=== PATIENT | female | born 1990 | race African-American/Black ===

== ENCOUNTER 2021-03-28 12:47 | Emergency (ER) | payer OTHER ==
[~2021-03-28] VITALS: Ht 170.2 cm; Wt 68.0 kg
[2021-03-28 13:01] VITALS: BP 123/76
--- NOTE | 2021-03-28 13:04 | NUR ---
PT AMBULATED TO BED 11
[2021-03-28] MEDS ORDERED: LIDOCAINE 2% 1000 MG/50 ML VIAL INJ ONE (13:05)
[2021-03-28] MEDS ORDERED: IBUPROFEN 600 MG TAB PO ONE (13:05)
--- NOTE | 2021-03-28 13:06 | NUR ---
30 YO FEMALE BIBS C/O LACERATION TO LEFT FOOT. PT STATES SHE DROPPED A BOWL ON HER FOOT. C/O PAIN 10 DESCRIBES STINGING/BURNING, NON RADIATING. BLEEDING CONTROLLED, NO REDNESS, SWELLING, NO S/S OF INFECTION. PEDAL PULSES 3+, ROM AND SENSATION INTACT. DENIES FEVER, CHILLS, N/V/D. A&OX4, RR EVEN AND UNLABORED. PMH: NONE NKDA
[2021-03-28] MEDS ORDERED: LIDOCAINE MPF 1% 5 ML ONE (13:26)
[2021-03-28] MEDS ORDERED: LIDOCAINE MPF 1% 10 MG/ML VIAL INJ ONE (13:35)
--- NOTE | 2021-03-28 13:40 | NUR ---
ROSELIA JEAN BAPTISTE AT BEDSIDE FOR SUTURE PROCEDURE.
[2021-03-28 14:06] VITALS: BP 123/76
--- NOTE | 2021-03-28 14:07 | NUR ---
Patient discharged with v/s stable. Written and verbal after care instructions given and explained. Patient verbalized understanding. Ambulatory with steady gait. All questions addressed prior to discharge. Advised to follow up with PMD.
== END 2021-03-28 14:07 | disposition home or self-care (01) ==
LOC: MED 12:47
DX: S91.312A Laceration without foreign body, left foot, initial encounter (principal); W26.8XXA Contact with other sharp object(s), not elsewhere classified, initial encounter; Y93.G1 Activity, food preparation and clean up; Y92.89 Other specified places as the place of occurrence of the external cause; Y99.8 Other external cause status
CPT/HCPCS: 12001; 73630; 99283; J2001

== ENCOUNTER 2021-03-30 11:06 | Emergency (ER) | payer OTHER ==
[~2021-03-30] VITALS: Ht 170.2 cm; Wt 68.0 kg
[2021-03-30 11:10] VITALS: BP 106/62
--- NOTE | 2021-03-30 12:47 | NUR ---
PATIENT LEFT WITHOUT BEING SEEN BY DR. BECKMAN. NO FURTHER CARE PROVIDED FOR PATIENT.
== END 2021-03-30 12:47 | disposition left against medical advice (07) ==
LOC: MED 11:06
DX: Z48.00 Encounter for change or removal of nonsurgical wound dressing (principal); Z53.21 Procedure and treatment not carried out due to patient leaving prior to being seen by health care provider

== ENCOUNTER 2021-04-02 19:30 | Emergency (ER) | payer OTHER ==
[~2021-04-02] VITALS: Ht 170.2 cm; Wt 73.0 kg
[2021-04-02 19:53] VITALS: BP 124/74
--- NOTE | 2021-04-02 20:01 | NUR ---
PT AMBULATED TO LOBBY TO A/W BED.
--- NOTE | 2021-04-02 20:20 | NUR ---
PT AMBULATED TO BED #4
--- NOTE | 2021-04-02 20:43 | NUR ---
IN ED ROOM 4 AWAITING SUTURE REMOVAL. KIT PLACED AT BEDSIDE FOR .
[2021-04-02 21:23] VITALS: BP 124/74
--- NOTE | 2021-04-02 21:24 | NUR ---
SUTURE REMOVED AND BANDAID APPLIED AFTER CARE GIVEN PT VERBALIZED UNDERSTANDING. PT AWAKE ALERT AMBULATORY.
== END 2021-04-02 21:23 | disposition home or self-care (01) ==
LOC: MED 19:30
DX: Z48.02 Encounter for removal of sutures (principal); S91.312D Laceration without foreign body, left foot, subsequent encounter; Z88.0 Allergy status to penicillin; W20.8XXD Other cause of strike by thrown, projected or falling object, subsequent encounter
CPT/HCPCS: 99281